=== PATIENT | female | born 1985 | race American Indian/Alaskan Native ===

== ENCOUNTER 2017-02-20 08:12 | Emergency (ER) | payer OTHER ==
[2017-02-20 08:21] VITALS: BMI 39.4
[2017-02-20 08:23] VITALS: TEMP 98.2
[2017-02-20] MEDS ORDERED: Sodium Chloride 0.9% 1,000 ML IV STA (08:24)
[2017-02-20 08:40] LABS: URINE BILIRUBIN NEGATIVE (NEGATIVE); URINE BLOOD LARGE (NEGATIVE); URINE GLUCOSE (UA) NEGATIVE (NEGATIVE); URINE KETONE NEGATIVE (NEGATIVE); URINE LEUKOCYTE ESTERASE TRACE Leu/uL (NEGATIVE); URINE PROTEIN TRACE mg/dL (<30 mg/dL); URINE UROBILINOGEN 0.2 E.U./dL (<1 E.U./dL)
[2017-02-20 08:41] LABS: URINE APPEARANCE SL CLOUDY (CLEAR); URINE COLOR YELLOW (YELLOW)
[2017-02-20 08:44] LABS: URINE BACTERIA FEW (NEG); URINE RBC TNTC /hpf (0-2)
--- NOTE | 2017-02-20 08:44 | ED PDOC ---
Arrival/HPI - General Chief Complaint: Abdominal Pain Time Seen by Provider: 02/20/17 08:13 Historian: Patient - History of Present Illness Narrative History of Present Illness (Text): 31 F with no significant pmh presents to the ED with abdominal pain. Pt states that she was having a bowl of cereal this morning when she started having severe abdominal pain. Pt states that the pain was sudden in onset, sharp, constant and 10/10 in severity. She states that she was nauseas and had 1 episode of non bloody non bilious at home. Denies this pain occurring before. She denies any headache, dizziness, f/c, back pain, sob, cp, palpitations, diarrhea, urinary changes. PMH: Denies PSH: knee surgery 3 yo Med: none ALL: Amoxicillin SH: denies drinking, smoking or drug usage PMD: Shiela Escoto Time/Duration: Prior to Arrival Symptom Onset: Sudden Symptom Course: Unchanged Quality: Aching Severity Level: 10 Past Medical History - Provider Review Nursing Documentation Reviewed: Yes - Tetanus Immunization Tetanus Immunization: Up to Date - Past Medical History Past Medical History: No Previous - Psychiatric Hx Depression: No Hx Emotional Abuse: No Hx Physical Abuse: No Hx Substance Use: No - Past Surgical History Past Surgical History: No Previous - Surgical History Hx Musculoskeletal Surgery: Yes (right knee) - Anesthesia Hx Anesthesia: Yes Hx Anesthesia Reactions: No Hx Malignant Hyperthermia: No - Suicidal Assessment Feels Threatened In Home Enviroment: No Family/Social History - Physician Review Nursing Documentation Reviewed: Yes Family/Social History: No Known Family HX Smoking Status: Never Smoked Hx Alcohol Use: No Hx Substance Use: No Hx Substance Use Treatment: No Allergies/Home Meds Allergies/Adverse Reactions: Allergies amoxicillin Allergy (Verified 02/20/17 08:20) ANGIOEDEMA Review of Systems - Physician Review All systems were reviewed & negative as marked: Yes - Review of Systems Constitutional: absent: Fevers Eyes: absent: Vision Changes ENT: absent: Hearing Changes Respiratory: absent: SOB, Cough Cardiovascular: absent: Chest Pain, Palpitations Gastrointestinal: Abdominal Pain, Nausea, Vomiting. absent: Diarrhea, Hematemesis Genitourinary Female: absent: Dysuria, Frequency Musculoskeletal: absent: Back Pain Skin: absent: Rash Neurological: absent: Headache, Dizziness Endocrine: absent: Diaphoresis Hemo/Lymphatic: absent: Easy Bleeding Psychiatric: absent: Anxiety, Depression Physical Exam Vital Signs Reviewed: Yes Vital Signs Temp Pulse Resp BP Pulse Ox 02/20/17 12:20 69 18 128/65 98 02/20/17 10:30 75 18 130/67 98 02/20/17 09:00 79 18 123/76 97 02/20/17 08:20 98.2 F 87 17 125/83 97 Temperature: Afebrile Blood Pressure: Normal Pulse: Regular Respiratory Rate: Normal Appearance: Positive for: Well-Appearing, Non-Toxic, Comfortable Pain Distress: Mild Mental Status: Positive for: Alert and Oriented X 3 - Systems Exam Head: Present: Atraumatic, Normocephalic Pupils: Present: PERRL Conjunctiva: Present: Normal Mouth: Present: Moist Mucous Membranes Neck: Present: Normal Range of Motion Respiratory/Chest: Present: Clear to Auscultation, Good Air Exchange. No: Respiratory Distress, Accessory Muscle Use, Wheezes Cardiovascular: Present: Regular Rate and Rhythm, Normal S1, S2. No: Murmurs Abdomen: Present: Tenderness (diffuse tenderness, worse in LLQ), Normal Bowel Sounds. No: Distention, Peritoneal Signs, Guarding, Rovsing's Sign Present Back: No: CVA Tenderness, Midline Tenderness Upper Extremity: No: Cyanosis, Edema Lower Extremity: No: Edema, CALF TENDERNESS Neurological: Present: GCS=15, CN II-XII Intact Skin: Present: Warm, Dry, Normal Color. No: Rashes Psychiatric: Present: Alert, Oriented x 3, Normal Insight, Normal Concentration Medical Decision Making ED Course and Treatment: Impression: 31 F with no significant pmh presents with abdominal pain Differential Diagnosis included but are not limited to: cholecystitis, appendicitis, nephrolithiasis Plan: CBC, CMP, Urinalysis, Pain control, Zofran, Pepcid, CT abd pelvis w/o contrast -- Reassess and disposition Prior Visits: Notes and results from previous visits were reviewed. Progress Notes: 02/20/17 12:54 CT abdomen was negative for any acute pathology - nephrolithiasis, appendicitis , cholecystitis. Abd US showed - negative for ovarian torsion, or acute pelvic pathology. Upon reevaluation patient pain is much improved. Reassessment Condition: Improved - Lab Interpretations Lab Results: 02/20/17 08:45 02/20/17 09:00 Lab Results 02/20/17 09:00: Sodium 140, Potassium 3.7, Chloride 104, Carbon Dioxide 29, Anion Gap 11, BUN 11, Creatinine 0.8, Est GFR ( Amer) > 60, Est GFR (Non- Af Amer) > 60, Random Glucose 118 H, Calcium 8.7, Total Bilirubin 0.6, AST 35, ALT 36, Alkaline Phosphatase 73, Total Protein 8.1, Albumin 4.2, Globulin 3.9, Albumin/Globulin Ratio 1.1, Lipase 21 L 02/20/17 08:45: WBC 5.8, RBC 4.64, Hgb 12.2, Hct 37.2, MCV 80.2, MCH 26.3, MCHC 32.8, RDW 15.1 H, Plt Count 256, MPV 10.2, Gran % 61.8, Lymph % (Auto) 29.8, [place] % (Auto) 6.7 H, Eos % (Auto) 1.4 L, Baso % (Auto) 0.3, Gran # 3.61, Lymph # 1.7, [place] # 0.4, Eos # 0.1, Baso # 0.02 02/20/17 08:30: Urine Color Yellow, Urine Appearance Sl cloudy, Urine pH 6.0, Ur Specific [place] >= 1.030, Urine Protein Trace H, Urine Glucose (UA) Negative , Urine Ketones Negative, Urine Blood Large H, Urine Nitrate Negative, Urine Bilirubin Negative, Urine Urobilinogen 0.2, Ur Leukocyte Esterase Trace H, Urine RBC Tntc, Urine WBC 2 - 5, Ur Epithelial Cells 4 - 5, Urine Bacteria Few, Urine HCG, Qual Negative - RAD Interpretation Radiology Orders: 02/20/17 08:55 ABDOMEN & PELVIS [ABD & PELVIS W/O PO OR IV CONT] [CT] Stat 02/20/17 10:47 TRANSVAGINAL [US] Stat - Medication Orders Current Medication Orders: Discontinued Medications Famotidine (Pepcid) 20 mg IVP STAT STA Stop: 02/20/17 08:25 Last Admin: 02/20/17 08:51 Dose: 20 mg Sodium Chloride (Sodium Chloride 0.9%) 1,000 mls @ 1,000 mls/hr IV .Q1H STA Stop: 02/20/17 09:23 Last Admin: 02/20/17 08:51 Dose: 1,000 mls/hr Ketorolac Tromethamine (Toradol) 30 mg IVP STAT STA Stop: 02/20/17 08:56 Last Admin: 02/20/17 09:22 Dose: 30 mg Ondansetron HCl (Zofran Inj) 4 mg IVP STAT STA Stop: 02/20/17 08:25 Last Admin: 02/20/17 08:51 Dose: 4 mg - PA / OUTDOOR ADVENTURE INSTRUCTOR / Resident Statement / has reviewed & agrees with the documentation as recorded. / has examined the patient and agrees with the treatment plan. Disposition/Present on Arrival - Present on Arrival Any Indicators Present on Arrival: No History of DVT/PE: No History of Uncontrolled Diabetes: No Urinary Catheter: No History of Decub. Ulcer: No History Surgical Site Infection Following: None - Disposition Have Diagnosis and Disposition been Completed?: Yes Diagnosis: Hematuria, Abdominal pain Disposition Time: 01:00 Patient Plan: Discharge Condition: IMPROVED Discharge Instructions (ExitCare): Acute Hematuria (ED) Additional Instructions: Thank you for letting us take care of you today. Your provider was Dr. Seaman. You were treated for blood in the urine. The emergency medical care you received today was directed at your acute symptoms. If you were prescribed any medication, please fill it and take as directed. It may take several days for your symptoms to resolve. Return to the Emergency Department if your symptoms worsen, do not improve, or if you have any other problems. Please contact your doctor or call one of the physicians/clinics you have been referred to that are listed on the Patient Visit Information form that is included in your discharge packet. Bring any paperwork you were given at discharge with you along with any medications you are taking to your follow up visit. Our treatment cannot replace ongoing medical care by a primary care provider (PCP) outside of the emergency department. Thank you for allowing the [facility] team to be part of your care today. You had a urine culture: It will take several days for the results, if any change in treatment is needed we will contact you. Follow up with your doctor or the clinic in 2-3 days to be re-evaluated. Prescriptions: Ibuprofen [Motrin] 600 mg PO Q6 PRN #20 tab PRN Reason: Pain, Moderate (4-7) Nitrofurantoin Macrocrystals [Macrobid] 100 mg PO BID #14 cap Referrals: [facility] [Outside] - Follow up with primary [facility] [Outside] - Follow up with primary Shiela Escoto MD [Primary Care Provider] - Follow up with primary
[2017-02-20 08:48] LABS: ADD MANUAL DIFF? NO
[2017-02-20 08:59] LABS: BASO # 0.02 K/mm3 (0.0-2.0); BASO % 0.3 % (0.0-3.0); EOS # 0.1 (0.0-0.7); EOS % 1.4 % (1.5-5.0); GRAN # 3.61 (1.4-6.5); GRAN % 61.8 % (50.0-68.0); HEMATOCRIT 37.2 % (36.0-48.0); LYMPH # 1.7 (1.2-3.4); LYMPH % 29.8 % (22.0-35.0); MEAN CELL VOLUME 80.2 fL (80.0-105.0); MEAN CORPUSCULAR HEMOGLOBIN 26.3 pg (25.0-35.0); MEAN CORPUSCULAR HGB CONC 32.8 g/dl (31.0-37.0); MEAN PLATELET VOLUME 10.2 fl (7.0-11.0); MONO # 0.4 (0.1-0.6); MONO % 6.7 % (1.0-6.0); PLATELET COUNT 256 10^3/uL (120.0-450.0); RED CELL DISTRIBUTION WIDTH 15.1 % (11.5-14.5); WHITE BLOOD COUNT 5.8 10^3/ul (4.5-11.0)
[2017-02-20 09:19] VITALS: RESP 18
[2017-02-20 09:27] LABS: ALB/GLOB RATIO 1.1 (1.1-1.8); ALKALINE PHOSPHATASE 73 U/L (38-133); ALT/SGPT 36 U/L (7-56); AST/SGOT 35 U/L (15-39); BILIRUBIN,TOTAL 0.6 mg/dL (0.2-1.3); BLOOD UREA NITROGEN 11 mg/dL (7-21); CALCIUM 8.7 mg/dL (8.4-10.5); CARBON DIOXIDE 29 mmol/L (21-33); CHLORIDE 104 mmol/L (98-107); GFR AFRICAN-AMERICAN > 60; GLUCOSE,RANDOM 118 mg/dL (70-110); LIPASE 21 U/L (23-300); POTASSIUM 3.7 mmol/L (3.6-5.0); SODIUM 140 mmol/L (132-148); TOTAL PROTEIN 8.1 g/dL (5.8-8.3)
--- NOTE | 2017-02-20 10:10 | CT ---
PROCEDURE: CT Abdomen and Pelvis without intravenous contrast HISTORY: abd pain COMPARISON: No prior similar study available for comparison. TECHNIQUE: Axial and reformatted coronal and sagittal CT images of the abdomen were obtained without IV or oral contrast administration.. Contrast Dose: 0 Radiation dose: Total exam DLP = 1275.14 mGy-cm. This CT exam was performed using one or more of the following dose reduction techniques: Automated exposure control, adjustment of the mA and/or kV according to patient size, and/or use of iterative reconstruction technique. FINDINGS: LOWER THORAX: Unremarkable. LIVER: Unremarkable. No gross lesion or ductal dilatation. GALLBLADDER AND BILE DUCTS: Unremarkable. PANCREAS: Unremarkable. No gross lesion or ductal dilatation. SPLEEN: Unremarkable. ADRENALS: Unremarkable. No mass. KIDNEYS AND URETERS: Unremarkable. No hydronephrosis. No solid mass. VASCULATURE: Unremarkable. No aortic aneurysm. BOWEL: Unremarkable. No obstruction. No gross mural thickening. APPENDIX: Unremarkable. Normal appendix. PERITONEUM: Unremarkable. No free fluid. No free air. LYMPH NODES: Unremarkable. No enlarged lymph nodes. BLADDER: Unremarkable. REPRODUCTIVE: Unremarkable. BONES: No acute fracture. OTHER FINDINGS: None. IMPRESSION: No evidence of nephrolithiasis or hydronephrosis. No CT evidence of cholecystitis, pancreatitis or appendicitis. Mild constipation.
[2017-02-20 10:30] VITALS: O2SAT 98
[2017-02-20 12:20] VITALS: BP 128/65; PULSE 69
--- NOTE | 2017-02-20 12:41 | US ---
HISTORY: LLQ pain ? torsion COMPARISON: Comparison is made to previous same-day CT of the abdomen and pelvis. TECHNIQUE: Transabdominal and endovaginal ultrasound examination of the pelvis. FINDINGS: UTERUS: Measures 8.7 x 4.9 x 4.7 cm. Retroverted uterus otherwise normal in size and appearance. No fibroid or other mass lesion seen. ENDOMETRIUM: Measures 10.8 mm in diameter. Unremarkable. CERVIX: No cervical abnormality identified. RIGHT OVARY: Measures 3 x 4.9 x 2.4 cm. No solid mass. Normal flow. LEFT OVARY: Measures 4.2 x 2.8 x 3.4 cm. No solid mass. Normal flow. FREE FLUID: No significant free fluid noted. OTHER FINDINGS: None. IMPRESSION: No ultrasound Doppler evidence of ovarian torsion. No ultrasound evidence of acute pathology in the pelvis. Retroverted uterus.
== END 2017-02-20 13:06 | disposition home or self-care (01) ==
LOC: ED 08:12
DX: R31.9 Hematuria, unspecified (principal); R10.9 Unspecified abdominal pain
CPT/HCPCS: 74176; 76830; 80053; 81001; 83690; 84703; 85025; 87086; 96361; 96374; 96375; 99284; J1885; J2405; J7040

== ENCOUNTER 2017-03-27 09:42 | Observation (INO) | payer OTHER ==
[2017-03-27 09:43] VITALS: BMI 39.4
[2017-03-27 09:56] VITALS: RESP 18; TEMP 98.6; O2SAT 98
[2017-03-27 10:43] LABS: ADD MANUAL DIFF? NO
[2017-03-27 10:45] LABS: BASO # 0.02 K/mm3 (0.0-2.0); BASO % 0.3 % (0.0-3.0); EOS % 0.6 % (1.5-5.0); GRAN # 4.95 (1.4-6.5); GRAN % 70.2 % (50.0-68.0); HEMATOCRIT 36.4 % (36.0-48.0); LYMPH # 1.6 (1.2-3.4); LYMPH % 22.7 % (22.0-35.0); MEAN CELL VOLUME 80.7 fL (80.0-105.0); MEAN CORPUSCULAR HEMOGLOBIN 26.8 pg (25.0-35.0); MEAN CORPUSCULAR HGB CONC 33.2 g/dl (31.0-37.0); MEAN PLATELET VOLUME 9.4 fl (7.0-11.0); MONO # 0.4 (0.1-0.6); MONO % 6.2 % (1.0-6.0); PLATELET COUNT 262 10^3/uL (120.0-450.0); RED CELL DISTRIBUTION WIDTH 14.9 % (11.5-14.5); WHITE BLOOD COUNT 7.1 10^3/ul (4.5-11.0)
[2017-03-27 10:57] LABS: INR 0.96 (0.93-1.08); PARTIAL THROMBOPLASTIN TIME 30.4 Seconds (23.7-30.8)
--- NOTE | 2017-03-27 11:10 | ED PDOC ---
Arrival/HPI - General Historian: Patient - General Chief Complaint: Female Genitourinary Time Seen by Provider: 03/27/17 09:54 - History of Present Illness Narrative History of Present Illness (Text): 03/27/17 11:07 Patient reports 1 day history of vaginal bleeding, with crampy lower abdominal pain. Patient states that she saw her primary care doctor 1 week ago and had a urine and a blood test which confirmed her , states based on the blood tests she was told by her primary care doctor last week that she is approximately 5 weeks . Otherwise: (-) N/V, (-) fever, (-) urinary symptoms, (-) prior salpingitis, (-) prior ectopic . Has (-) care and (-) prior OB ultrasound. 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 1 AB 0 LNMP February 06 (Valentín JULIEN,Ursula Friedman) Past Medical History - Provider Review Nursing Documentation Reviewed: Yes - Infectious Disease Hx of Infectious Diseases: None - Tetanus Immunization Tetanus Immunization: Up to Date - Past Medical History Past Medical History: No Previous - Psychiatric Hx Depression: No Hx Emotional Abuse: No Hx Physical Abuse: No Hx Substance Use: No - Past Surgical History Past Surgical History: No Previous - Surgical History Hx Musculoskeletal Surgery: Yes (right knee) - Anesthesia Hx Anesthesia: Yes Hx Anesthesia Reactions: No Hx Malignant Hyperthermia: No - Suicidal Assessment Feels Threatened In Home Enviroment: No Family/Social History - Physician Review Nursing Documentation Reviewed: Yes Family/Social History: No Known Family HX Smoking Status: Never Smoked Hx Alcohol Use: No Hx Substance Use: No Hx Substance Use Treatment: No Allergies/Home Meds Allergies/Adverse Reactions: Allergies amoxicillin Allergy (Verified 03/27/17 09:56) ANGIOEDEMA Review of Systems - Review of Systems Constitutional: Normal. absent: Fatigue, Weight Change, Fevers Respiratory: Normal. absent: SOB, Cough, Sputum Cardiovascular: Normal. absent: Chest Pain, Palpitations Gastrointestinal: Normal, Abdominal Pain, Nausea. absent: Stool Changes, Vomiting, Appetite Changes Genitourinary Female: Normal, Vaginal Bleeding. absent: Dysuria, Frequency, Hematuria Musculoskeletal: Normal. absent: Arthralgias, Back Pain, Neck Pain Skin: Normal. absent: Rash, Pruritis, Skin Lesions Physical Exam - Physical Exam Narrative Physical Exam (Text): 03/27/17 11:09 GENERAL APPEARANCE: Patient is awake, alert, oriented x 3, in no acute distress. SKIN: Warm, dry; (-) cyanosis. EYES: (-) conjunctival pallor. ENMT: Mucous membranes moist. NECK: (-) tenderness, (-) stiffness, (-) lymphadenopathy. CHEST AND RESPIRATORY: (-) rales, (-) rhonchi, (-) wheezes; breath sounds equal bilaterally. HEART AND CARDIOVASCULAR: (-) irregularity; (-) murmur, (-) gallop. ABDOMEN AND GI: Soft; (-) tenderness. EXTREMITIES: (-) deformity. NEURO AND PSYCH: Mental status as above; (-) focal findings. (Valentín JULIEN, Ursula Friedman) Vital Signs Temp Pulse Resp BP Pulse Ox 03/27/17 15:00 75 18 132/67 98 03/27/17 14:03 79 18 134/69 98 03/27/17 12:14 84 18 136/71 98 03/27/17 11:20 89 18 138/69 98 03/27/17 09:51 98.6 F 95 H 18 142/73 98 Medical Decision Making - Lab Interpretations I have reviewed the lab results: Yes (Beta quant is 827. Type&screen A+. Pt noted to have a UTI.) ED Course and Treatment: I was available for consultation during PA evaluation. The chart was reviewed by me, and I agree with disposition. The documented history was done by the physician receiving barn custodian. The documented physical exam was done by the physician receiving barn custodian. The documented procedures were done by the physician receiving barn custodian. (Markel Navarro) 03/27/17 11:10 31 -year-old female approximately 6 weeks presents with vaginal bleeding and abdominal pain. Plan: -- Labs -- IV access -- Urinalysis -- Patient placed in ED observation -- TV US (Valentín JULIEN,Ursula Friedman) - Lab Interpretations Lab Results: 03/27/17 10:30 Lab Results 03/27/17 10:30: Beta HCG, Quant 827.92 H 03/27/17 10:30: WBC 7.1 D, RBC 4.51, Hgb 12.1, Hct 36.4, MCV 80.7, MCH 26.8, MCHC 33.2, RDW 14.9 H, Plt Count 262, MPV 9.4, Gran % 70.2 H, Lymph % (Auto) 22.7, [place] % (Auto) 6.2 H, Eos % (Auto) 0.6 L, Baso % (Auto) 0.3, Gran # 4.95, Lymph # 1.6, [place] # 0.4, Eos # 0.0, Baso # 0.02 - RAD Interpretation Narrative RAD Interpretations (Text): 03/27/17 15:17 TV US: FINDINGS: UTERUS: Gestational sac: No evidence of gestational sac Uterus measures 10.8 x 5.3 x 6.5 cm. Normal in size and appearance. The endometrial canal measures between 1.2 and 2.2 cm in thickness and contains echogenic material. CERVIX: Long and closed. No cervical abnormality seen. RIGHT OVARY: Measures 3.6 x 2.5 x 3.8 cm. No mass lesion. Normal flow. There is a cyst measuring 2.6 x 1.9 x 2.5 cm LEFT OVARY: Not visualized FREE FLUID: Minimal free fluid OTHER FINDINGS: None. IMPRESSION: No evidence of intrauterine gestational sac (Ursula Laura PA-C) Radiology Orders: 03/27/17 10:05 OB TRANSVAGINAL [US] Stat - Medication Orders Current Medication Orders: Discontinued Medications Nitrofurantoin Macrocrystals (Macrobid) 100 mg PO ONCE ONE Stop: 03/27/17 13:18 Last Admin: 03/27/17 13:37 Dose: 100 mg ED OBSERVATION Date of observation admission: 03/27/17 Time of observation admission: 10:06 - Observation admission statement Patient is being placed in observation because:: Considering patient's symptoms of abdominal pain and vaginal bleeding, need to rule out threatened AB versus ectopic . (Ursula Laura PA-C) - Goals of Observation Goals of observation are:: To monitor patient's signs and symptoms. (Ursula Laura PA-C) - Progress Note Progress Note: 03/27/17 12:45 Lab results reviewed, patient noted to have a UTI. Patient medicated with Macrobid by mouth. On reevaluation, patient is resting comfortably in bed in no acute distress. Patient reports no abdominal pain or significant vaginal bleeding at this time. On exam, abdomen remains soft with no tenderness. Patient is awaiting ultrasound at this time. 03/27/17 15:18 US shows no IUP. Ultrasound results discussed with the patient in great detail. Patient advised that she may have early at this time versus threatened AB, and still considering small possibility of an ectopic . Hence the patient was advised to return to the emergency room after 2 days for repeat beta Quant. Patient states she fully agrees with and understands discharge instructions. States that she agrees with the plan and disposition. Verbalized and repeated discharge instructions and plan. I have given the patient opportunity to ask any additional questions. Patient advised to return to the emergency room after 2 days without fail for repeat beta Quant. Advised to take medication as prescribed for UTI. Return to the emergency room at any time for any new or worsening symptoms. (Valentín JULIEN,Ursula Friedman) Disposition/Present on Arrival - Present on Arrival Any Indicators Present on Arrival: No History of DVT/PE: No History of Uncontrolled Diabetes: No Urinary Catheter: No History of Decub. Ulcer: No History Surgical Site Infection Following: None - Disposition Have Diagnosis and Disposition been Completed?: Yes Disposition Time: 10:06 (Pt placed in ED observation) Patient Plan: Discharge - Disposition Diagnosis: Threatened Disposition: HOME/ ROUTINE Patient Problems: Current Active Problems Problem Status Onset Threatened Acute Condition: GOOD
[2017-03-27 12:58] LABS: PH,URINE 7.5 (4.7-8.0); URINE BILIRUBIN NEGATIVE (NEGATIVE); URINE BLOOD LARGE (NEGATIVE); URINE GLUCOSE (UA) NEGATIVE (NEGATIVE); URINE KETONE NEGATIVE (NEGATIVE); URINE LEUKOCYTE ESTERASE SMALL Leu/uL (NEGATIVE); URINE PROTEIN 30 mg/dL (<30 mg/dL); URINE UROBILINOGEN 0.2 E.U./dL (<1 E.U./dL)
[2017-03-27 13:04] LABS: URINE APPEARANCE CLEAR (CLEAR); URINE COLOR YELLOW (YELLOW)
[2017-03-27 13:07] LABS: URINE BACTERIA TRACE (NEG)
--- NOTE | 2017-03-27 14:50 | US ---
PROCEDURE: OB Pelvic Ultrasound HISTORY: 6 wks preg, abd pain COMPARISON: None available. FINDINGS: UTERUS: Gestational sac: No evidence of gestational sac Uterus measures 10.8 x 5.3 x 6.5 cm. Normal in size and appearance. The endometrial canal measures between 1.2 and 2.2 cm in thickness and contains echogenic material. CERVIX: Long and closed. No cervical abnormality seen. RIGHT OVARY: Measures 3.6 x 2.5 x 3.8 cm. No mass lesion. Normal flow. There is a cyst measuring 2.6 x 1.9 x 2.5 cm LEFT OVARY: Not visualized FREE FLUID: Minimal free fluid OTHER FINDINGS: None. IMPRESSION: No evidence of intrauterine gestational sac
[2017-03-27 15:30] VITALS: BP 132/67; PULSE 75
== END 2017-03-27 15:15 | disposition home or self-care (01) ==
LOC: ED 09:42 → EROBSV 10:37
PROVIDERS: ADMIT Emergency Medicine; ATTEND Emergency Medicine
DX: O20.0 Threatened abortion (principal); Z3A.01 Less than 8 weeks gestation of pregnancy
CPT/HCPCS: 36415; 76817; 81001; 84702; 85025; 85610; 85730; 86850; 86900; 87086; 99284; G0378

== ENCOUNTER 2017-03-30 08:23 | Emergency (ER) | payer OTHER ==
[2017-03-30 08:24] VITALS: BMI 39.4
[2017-03-30 08:46] VITALS: BP 138/69; PULSE 99; RESP 19; TEMP 98; O2SAT 100
--- NOTE | 2017-03-30 09:01 | ED PDOC ---
Arrival/HPI - History of Present Illness Time/Duration: Prior to Arrival Symptom Course: Unchanged Context: Home <Angela Ferro - Last Filed: 03/30/17 12:22> <Rasta Dodge - Last Filed: 03/30/17 13:38> - General Chief Complaint: Female Genitourinary Time Seen by Provider: 03/30/17 08:38 - History of Present Illness Narrative History of Present Illness (Text): 03/30/17 08:57 31 yo female with no significant PMH presents to emergency department with vaginal bleeding during . Patient states that she was in the emergency department on Monday for vaginal bleeding. At the time she had vaginal ultrasound that did not show intrauterine . Patient was told to return to emergency department to repeat beta- HCG. She continues to have vaginal bleeding with clots. She uses 2 pads everyday. She denies abd pain, fever, chill , n/v. LMP was February 06. Previous was uncomplicated. PMD: Dr. Gomes (Angela Ferro) Past Medical History - Provider Review Nursing Documentation Reviewed: Yes - Infectious Disease Hx of Infectious Diseases: None - Tetanus Immunization Tetanus Immunization: Up to Date - Past Medical History Past Medical History: No Previous - Psychiatric Hx Depression: No Hx Emotional Abuse: No Hx Physical Abuse: No Hx Substance Use: No - Past Surgical History Past Surgical History: No Previous - Surgical History Hx Musculoskeletal Surgery: Yes (right knee) - Anesthesia Hx Anesthesia: Yes Hx Anesthesia Reactions: No Hx Malignant Hyperthermia: No - Suicidal Assessment Feels Threatened In Home Enviroment: No <Angela Ferro - Last Filed: 03/30/17 12:22> Family/Social History - Physician Review Nursing Documentation Reviewed: Yes Family/Social History: No Known Family HX Smoking Status: Never Smoked Hx Alcohol Use: No Hx Substance Use: No Hx Substance Use Treatment: No <Angela Ferro - Last Filed: 03/30/17 12:22> Allergies/Home Meds <Angela Ferro - Last Filed: 03/30/17 12:22> <Rasta Dodge - Last Filed: 03/30/17 13:38> Allergies/Adverse Reactions: Allergies amoxicillin Allergy (Verified 03/27/17 09:56) ANGIOEDEMA Review of Systems - Review of Systems Constitutional: Normal. absent: Fatigue, Fevers Eyes: Normal. absent: Vision Changes ENT: Normal. absent: Sore Throat, Rhinorrhea, Sinus Congestion Respiratory: Normal. absent: SOB, Cough, Wheezing Cardiovascular: Normal. absent: Chest Pain, Palpitations, Syncope Gastrointestinal: Normal. absent: Abdominal Pain, Constipation, Diarrhea, Nausea, Vomiting Genitourinary Female: Normal, Vaginal Bleeding. absent: Dysuria, Frequency Musculoskeletal: Normal. absent: Arthralgias, Back Pain, Myalgias Skin: Normal. absent: Rash, Pruritis, Laceration, Abscess Neurological: Normal. absent: Headache, Dizziness, Focal Weakness Endocrine: Normal Hemo/Lymphatic: Normal. absent: Easy Bleeding, Easy Bruising Psychiatric: Normal <Angela Ferro - Last Filed: 03/30/17 12:22> Physical Exam - Systems Exam Head: Present: Atraumatic, Normocephalic Pupils: Present: PERRL. No: Pinpoint Extroacular Muscles: Present: EOMI. No: Gaze Palsy, Entrapment Conjunctiva: Present: Normal Mouth: Present: Moist Mucous Membranes Nose (External): Present: Atraumatic Neck: Present: Normal Range of Motion Respiratory/Chest: Present: Clear to Auscultation, Good Air Exchange. No: Respiratory Distress, Accessory Muscle Use, Wheezes, Rales, Rhonchi, Tachypneic Cardiovascular: Present: Regular Rate and Rhythm, Normal S1, S2. No: Murmurs, Tachycardic, Bradycardic Abdomen: Present: Normal Bowel Sounds. No: Tenderness, Distention, Peritoneal Signs Genitourinary/Pelvic Exam: Present: Normal External Genitalia, Vaginal Bleeding , Cervical os Closed, Other (chaparone present during examination ). No: Adenexal Tenderness, Adenexal Mass, Cervical Motion Tendernes Back: Present: Normal Inspection Upper Extremity: Present: Normal Inspection, NORMAL PULSES. No: Cyanosis, Edema , Tenderness, Swelling Lower Extremity: Present: Normal Inspection, NORMAL PULSES. No: Edema, CALF TENDERNESS Neurological: Present: GCS=15, CN II-XII Intact, Speech Normal Skin: Present: Warm, Dry, Normal Color. No: Rashes Psychiatric: Present: Alert, Oriented x 3, Normal Insight, Normal Concentration <Angela Ferro - Last Filed: 03/30/17 12:22> Medical Decision Making <Angela Ferro - Last Filed: 03/30/17 12:22> <Rasta Dodge - Last Filed: 03/30/17 13:38> ED Course and Treatment: 03/30/17 09:03 Impression: 31 yo female with no significant PMH present with vaginal bleeding during Differential Diagnosis included but are not limited to: - threatened Plan: - beta hcg - Reassess and disposition Progress Notes: - patient had previous vaginal US on 03/27 which showed no intrauterine . Will repeat beta HCG. 03/30/17 10:32 - Beta- HCG was 53.6, decreased from previous visit 3 days ago. Speculum exam was done with cementer oil well present. Results were discussed with patient. She is to follow up with PMD in 1-2 day and OBGYN next week. Discharge plan was discussed with patient all questions answered. (Angela Ferro) A 31 year old female with , approximately 5 weeks , presents with vaginal bleeding. In agreement with resident note, which includes further HPI details. Patient was seen and evaluated with resident, came up with plan and treatment together. 03/30/17 A positive blood type from previous visit. Patient was reevaluted prior to discharge. Does not have pain. Abdomen soft and not tender. Pelvic exam performed by resident with my supervision. Mild bleeding and not tissue. Bhcg is decreasing. We discussed with patient the results and explained to her that she needs to follow up with her fur polisher in 1-2days. She understands that she's having a miscarriage. (Rasta Dodge) - Lab Interpretations Lab Results: Lab Results 03/30/17 09:29: Beta HCG, Quant 53.64 H <Angela Ferro - Last Filed: 03/30/17 12:22> - PA / ACADEMIC ADVISER / Resident Statement MD/DO has reviewed & agrees with the documentation as recorded. MD/DO has examined the patient and agrees with the treatment plan. - Scribe Statement The provider has reviewed the documentation as recorded by the Scribe <Rasta Dodge - Last Filed: 03/30/17 13:38> - Scribe Statement Seema Amaya Provider Scribe Attestation: All medical record entries made by the Scribe were at my direction and personally dictated by me. I have reviewed the chart and agree that the record accurately reflects my personal performance of the history, physical exam, medical decision making, and the department course for this patient. I have also personally directed, reviewed, and agree with the discharge instructions and disposition. (Rasta Dodge) Disposition/Present on Arrival - Present on Arrival Any Indicators Present on Arrival: No History of DVT/PE: No History of Uncontrolled Diabetes: No Urinary Catheter: No History Surgical Site Infection Following: None - Disposition Have Diagnosis and Disposition been Completed?: Yes Disposition Time: 10:30 Patient Plan: Discharge <Angela Ferro - Last Filed: 03/30/17 12:22> <Rasta Dodge - Last Filed: 03/30/17 13:38> - Disposition Diagnosis: Spontaneous Disposition: HOME/ ROUTINE Condition: GOOD Additional Instructions: Collette Ambrosio, thank you for letting us take care of you today. Your provider was Dr. Ferro and Dr. Dodge. You were treated for spontaneous . The emergency medical care you received today was directed at your acute symptoms. If you were prescribed any medication, please fill it and take as directed. It may take several days for your symptoms to resolve. Return to the Emergency Department if your symptoms worsen, do not improve, or if you have any other problems. Please contact your doctor or call one of the physicians/clinics you have been referred to that are listed on the Patient Visit Information form that is included in your discharge packet. Bring any paperwork you were given at discharge with you along with any medications you are taking to your follow up visit. Our treatment cannot replace ongoing medical care by a primary care provider (PCP) outside of the emergency department. Follow up with your SHOEMAKING FINISHER in 1 week. Thank you for allowing the [facility] team to be part of your care today. Referrals: [facility] Cely Srivastava, [Primary Care Provider] - Follow up with primary
== END 2017-03-30 10:43 | disposition home or self-care (01) ==
LOC: ED 08:23
DX: O03.9 Complete or unspecified spontaneous abortion without complication (principal)

== ENCOUNTER 2017-06-09 20:09 | Emergency (ER) | payer OTHER ==
[2017-06-09 20:10] VITALS: BMI 39.4
[2017-06-09 20:15] VITALS: BP 142/84; PULSE 91; RESP 16; TEMP 98.8; O2SAT 100
--- NOTE | 2017-06-09 21:10 | ED PDOC ---
Arrival/HPI - General Chief Complaint: Medical Clearance Time Seen by Provider: 06/09/17 20:26 Historian: Patient - History of Present Illness Narrative History of Present Illness (Text): 06/09/17 20:45 A 32 year old female, with no significant past medical history, presents to the emergency department complaining of dental abscess. Patient reports that she has a dentist appointment June 27. Patient notes experiencing pain when swallowing, but denies of any fever, chills, nausea, vomiting, diarrhea, abdominal pain, chest pain, shortness of breath, or any other complaints. Symptom Onset: Sudden Symptom Course: Unchanged Context: Home Past Medical History - Provider Review Nursing Documentation Reviewed: Yes - Infectious Disease Hx of Infectious Diseases: None - Tetanus Immunization Tetanus Immunization: Up to Date - Past Medical History Past Medical History: No Previous - Psychiatric Hx Depression: No Hx Emotional Abuse: No Hx Physical Abuse: No Hx Substance Use: No - Past Surgical History Past Surgical History: No Previous - Surgical History Hx Musculoskeletal Surgery: Yes (right knee) - Anesthesia Hx Anesthesia: Yes Hx Anesthesia Reactions: No Hx Malignant Hyperthermia: No - Suicidal Assessment Feels Threatened In Home Enviroment: No Family/Social History - Physician Review Nursing Documentation Reviewed: Yes Family/Social History: No Known Family HX Smoking Status: Never Smoked Hx Alcohol Use: No Hx Substance Use: No Hx Substance Use Treatment: No Allergies/Home Meds Allergies/Adverse Reactions: Allergies amoxicillin Allergy (Verified 03/27/17 09:56) ANGIOEDEMA Review of Systems - Physician Review All systems were reviewed & negative as marked: Yes - Review of Systems Constitutional: absent: Fevers, Night Sweats Respiratory: absent: SOB Cardiovascular: absent: Chest Pain Gastrointestinal: absent: Abdominal Pain, Diarrhea, Nausea, Vomiting Musculoskeletal: Neck Pain (occurs when swallowing) Physical Exam Vital Signs Reviewed: Yes Vital Signs Temp Pulse Resp BP Pulse Ox 06/09/17 20:15 98.8 F 91 H 16 142/84 100 Temperature: Afebrile Blood Pressure: Normal Pulse: Regular Respiratory Rate: Normal Appearance: Positive for: Well-Appearing Pain Distress: None Mental Status: Positive for: Alert and Oriented X 3 - Systems Exam Head: Present: Atraumatic Pupils: Present: PERRL Extroacular Muscles: Present: EOMI Conjunctiva: Present: Normal Ears: Present: Normal Mouth: Present: Other (right upper 2nd molar dental abscess and dental fracture) Pharnyx: No: Uvular Deviation Neck: Present: Other (right side of neck lymph node) Respiratory/Chest: Present: Clear to Auscultation Neurological: Present: GCS=15 Medical Decision Making ED Course and Treatment: 06/09/17 20:50 Impression: 32 year old female with dental abscess. Physical exam shows right upper 2nd molar dental abscess; right side of neck lymph node. Plan: -- Cleocin -- Reassess and disposition Prior Visits: Notes and results from previous visits were reviewed. Patient was last seen in the emergency department on 03/30/2017 for vaginal bleeding during . Patient was discharged home. Progress Notes: - Medication Orders Current Medication Orders: Discontinued Medications Clindamycin HCl (Cleocin) 150 mg PO STAT STA PRN Reason: Protocol Stop: 06/09/17 20:51 Last Admin: 06/09/17 21:05 Dose: 150 mg - Scribe Statement The provider has reviewed the documentation as recorded by the Michaelle Fields Provider Scribe Attestation: All medical record entries made by the Michaelle were at my direction and personally dictated by me. I have reviewed the chart and agree that the record accurately reflects my personal performance of the history, physical exam, medical decision making, and the department course for this patient. I have also personally directed, reviewed, and agree with the discharge instructions and disposition. Disposition/Present on Arrival - Present on Arrival Any Indicators Present on Arrival: No History of DVT/PE: No History of Uncontrolled Diabetes: No Urinary Catheter: No History of Decub. Ulcer: No History Surgical Site Infection Following: None - Disposition Have Diagnosis and Disposition been Completed?: Yes Diagnosis: Dental abscess Disposition: HOME/ ROUTINE Disposition Time: 21:10 Condition: GOOD Discharge Instructions (ExitCare): Dental Abscess (ED) Prescriptions: Clindamycin [Cleocin] 150 mg PO QID #40 cap Referrals: PCP,NO [Primary Care Provider] - Follow up with primary Forms: Elysia (Bolivian)
== END 2017-06-09 21:10 | disposition home or self-care (01) ==
LOC: ED 20:09
DX: K04.7 Periapical abscess without sinus (principal)